=== PATIENT | male | born 1960 | race Caucasian/White ===

== ENCOUNTER 2017-11-26 15:54 | Emergency (ER) | payer MEDICAID ==
[~2017-11-26] VITALS: Ht 177.8 cm; Wt 88.6 kg
[~2017-11-26 15:54] MED LIST: NO HOME MEDS
[2017-11-26 16:02] VITALS: BP 144/101
== END 2017-11-26 16:27 | disposition home or self-care (01) ==
LOC: ER 15:55
DX: F20.9 Schizophrenia, unspecified (principal); F15.10 Other stimulant abuse, uncomplicated; Z88.6 Allergy status to analgesic agent
CPT/HCPCS: 99284